=== PATIENT | female | born 1995 | race Caucasian/White ===

== ENCOUNTER 2016-11-05 19:46 | Emergency (ER) | payer OTHER ==
[2016-11-05 20:19] VITALS: BP 125/74
--- NOTE | 2016-11-05 20:42 | UC ---
HPI Febrile Illness - HPI Summary HPI Summary: fevers to 101.7 for 2d, chills, body aches. Mild ST today. Mild dry cough. Headache. Did get a flu shot this year. Able to eat and drink, but diminished appetite. No rash. College student, many ill contacts. - History of Current Complaint Chief Complaint: UCGeneralIllness Time Seen by Provider: 11/05/16 20:31 Hx Obtained From: Patient Timing: Constant Initial Severity: Mild Current Severity: Mild Aggravating Factors: Nothing Alleviating Factors: Nothing Associated Signs and Symptoms: Chills, Headache, Myalgia, Weakness - Risk Factors Pseudomonas Risk Factors: Negative Serious Bacterial Infection Risk Factors: Negative - Allergy/Home Medications Allergies/Adverse Reactions: Allergies Allergy/AdvReac Type Severity Reaction Status Date / Time CI Pigment Blue 63 AdvReac Vomiting Verified 11/05/16 20:14 [From Tamiflu] Oseltamivir [From Tamiflu] AdvReac Vomiting Verified 11/05/16 20:14 PMH/Surg Hx/FS Hx/Imm Hx Previously Healthy: Yes Respiratory History: Reports: Hx Asthma Infectious Disease History: No Infectious Disease History: Reports: Traveled Outside the in Last 30 Days - [place] - Family History Known Family History: Positive: Respiratory Disease - no asthma - Social History Occupation: Student Lives: Alone - dorm Alcohol Use: None Substance Use Type: Reports: None Smoking Status (MU): Never Smoked Tobacco Review of Systems Constitutional: Fever, Chills, Fatigue Skin: Negative Eyes: Negative ENT: Sore Throat Respiratory: Negative Cardiovascular: Negative Gastrointestinal: Negative Genitourinary: Negative Motor: Negative Neurovascular: Negative Musculoskeletal: Myalgia Neurological: Headache, Weakness Psychological: Negative All Other Systems Reviewed And Are Negative: Yes Physical Exam Triage Information Reviewed: Yes Appearance: Well-Appearing, No Pain Distress, Well-Nourished Vital Signs: Initial Vital Signs Temp 99.4 F 11/05/16 20:13 Pulse 126 11/05/16 20:13 Resp 16 11/05/16 20:13 BP 125/74 11/05/16 20:13 Pulse Ox 98 11/05/16 20:13 Vital Signs Reviewed: Yes Eye Exam: Normal Eyes: Positive: Conjunctiva Clear ENT: Positive: Hearing grossly normal, Pharyngeal erythema, TMs normal, Tonsillar swelling, Muffled/hoarse voice - hoarse. Negative: Tonsillar exudate Neck exam: Normal Neck: Positive: Supple Respiratory Exam: Normal Respiratory: Positive: Lungs clear, Normal breath sounds Cardiovascular Exam: Normal Musculoskeletal Exam: Normal Neurological Exam: Normal Psychological Exam: Normal Skin Exam: Normal Diagnostics - Laboratory Diagnostic Studies Completed/Ordered: strep neg, flu neg Course/Dx - Diagnoses Clinic Provider Diagnoses: viral syndrome Discharge - Discharge Plan Condition: Stable Disposition: HOME Patient Education Materials: Viral Syndrome (ED) Referrals: Non Staff,Doctor [Primary Care Provider] - Additional Instructions: Testing for influenza and Strep was negative. If you continue to have fever and sore throat a week from now, you may want to consider getting a mononucleosis test. There is no treatment for mono, but it is helpful to know if you have it.
== END 2016-11-05 21:08 | disposition home or self-care (01) ==
LOC: UCCORT 19:46
DX: B34.9 Viral infection, unspecified (principal); Z88.8 Allergy status to other drugs, medicaments and biological substances
CPT/HCPCS: 87502; 87651; 99211; G0463